=== PATIENT | male | born 1980 | race Caucasian/White ===

== ENCOUNTER 2022-08-08 12:47 | Inpatient (IN) | payer OTHER ==
[~2022-08-08] VITALS: Ht 172.7 cm; Wt 80.7 kg
--- NOTE | 2022-08-08 12:52 | NUR ---
[facility] unit 305 From [facility] "Abdominal Pain/nausea/vomiting." Attached to monitor vitals are withi normal limit. Awaiting MD orders.
[2022-08-08] MEDS ORDERED: ONDANSETRON HCL/PF 4 MG/2 ML VIAL ONE ×2 (12:58→15:31)
[2022-08-08] MEDS ORDERED: ONDANSETRON HCL/PF 4 MG/2 ML VIAL IVP ONE (13:00)
--- NOTE | 2022-08-08 13:29 | NUR ---
PT TAKEN TO CT VIA CT
[2022-08-08 13:44] LABS: BASOPHILS % (AUTO) 0.3 % (0.0-2.0); EOSINOPHILS % (AUTO) 0.8 % (0.0-6.0); HEMATOCRIT 43 % (39-51); HEMOGLOBIN 14.3 g/dL (13.5-17.5); LYMPHOCYTES % (AUTO) 17.3 % (20.0-44.0); MEAN CORPUSCULAR HGB CONC 33 g/dl (31.0-36.0); MEAN CORPUSCULAR VOLUME 88 fL (80-96); MONOCYTES # (AUTO) 0.8 K/uL (0.1-1.30); MONOCYTES % (AUTO) 7.1 % (2.0-12.0); NEUTROPHILS # (AUTO) 8.5 K/uL (1.8-8.9); NEUTROPHILS % (AUTO) 74.5 % (43.0-81.0); PLATELET COUNT (AUTO) 285 K/uL (150-450); WHITE BLOOD COUNT (AUTO) 11.4 K/uL (4.3-11.0)
--- NOTE | 2022-08-08 14:20 | NUR ---
ULTRASOUND AT BEDSIDE
--- NOTE | 2022-08-08 14:45 | NUR ---
OLEGARIO COLLECTED AND SENT
--- NOTE | 2022-08-08 15:02 | NUR ---
URINE COLLECTED AND SENT
[2022-08-08 15:09] LABS: BILIRUBIN,URINE NEGATIVE (NEGATIVE); COLOR,URINE YELLOW (YELLOW); LEUKOCYTE ESTERASE ,URINE NEGATIVE (NEGATIVE); NITRITE, URINE NEGATIVE (NEGATIVE); PROTEIN,URINE NEGATIVE (NEGATIVE); UGLUCOSE 1+ mg/dL (NEGATIVE); UROBILINOGEN,URINE 0.2 EU/dL (0.2)
[2022-08-08 15:09] LABS: ALBUMIN 3.7 g/dL (3.4-5.0); BILIRUBIN,DIRECT 0.1 mg/dL (0.0-0.2); BILIRUBIN,TOTAL 0.5 mg/dL (0.2-1.0); CALCIUM, SERUM 9.5 mg/dL (8.5-10.1); CREATININE 0.6 mg/dL (0.6-1.3); TOTAL PROTEIN, SERUM 7.7 g/dL (6.4-8.2)
[2022-08-08] MEDS ORDERED: AMIN30LI2 PO (15:23)
[2022-08-08] MEDS ORDERED: BISA10SU11 RC (15:23)
[2022-08-08] MEDS ORDERED: POLY17PO4 PO (15:23)
[2022-08-08] MEDS ORDERED: INSU100V27 SQ (15:23)
[2022-08-08] MEDS ORDERED: MAGN400O6 PO (15:23)
[2022-08-08] MEDS ORDERED: METF-440 PO (15:23)
[2022-08-08] MEDS ORDERED: OXYC5TAB3 PO (15:23)
[2022-08-08] MEDS ORDERED: ACET-2605 PO (15:23)
[2022-08-08] MEDS ORDERED: ACET-868 PO ×2 (15:23)
[2022-08-08] MEDS ORDERED: GABA-532 PO (15:23)
[2022-08-08] MEDS ORDERED: ONDA4TAB5 PO (15:23)
[2022-08-08] MEDS ORDERED: MULT-447 PO (15:23)
[2022-08-08] MEDS ORDERED: OXYC10TA49 PO (15:23)
[2022-08-08] MEDS ORDERED: NA P133E RC (15:23)
[2022-08-08] MEDS ORDERED: GLIM4TAB37 PO (15:23)
[2022-08-08] MEDS ORDERED: INSU100V7 SQ (15:23)
[2022-08-08] MEDS ORDERED: CLON0.1T PO (15:23)
[2022-08-08] MEDS ORDERED: ASCO-352 PO (15:23)
[2022-08-08] MEDS ORDERED: MORPHINE SULFATE INJ 2 MG/ML DISP.SYRIN IV ONE (15:30)
[2022-08-08] MEDS ORDERED: PIPERACILLIN /TAZOBACTAM 3.375 G in IV D5W 50 ML IV ONE (15:30)
[2022-08-08] MEDS ORDERED: ONDANSETRON HCL/PF - ER 4 MG/2 ML VIAL IV ONE (15:30)
[2022-08-08] MEDS ORDERED: MORPHINE SULFATE INJ 2 MG/ML DISP.SYRIN ONE (15:31)
--- NOTE | 2022-08-08 16:21 | NUR ---
BED 325-2
--- NOTE | 2022-08-08 16:27 | NUR ---
report given to deniz for darrin
--- NOTE | 2022-08-08 18:23 | NUR ---
PT TAKEN TO MED SURG FLOOR IN STABLE CONDITION
--- NOTE | 2022-08-08 18:37 | NUR ---
Received pt from ER at 1824. VS taken: BP-115/79; SP02-95; HR-65; Temp-98; RR-20. Will be endorsed to pm shift nurse for darrin
[2022-08-08] MEDS ORDERED: ONDANSETRON HCL/PF 4 MG/2 ML VIAL IVP PRN (19:00)
[2022-08-08] MEDS ORDERED: DEXTROSE 50%-WATER 50 ML DISP.SYRIN IV PRN (19:00)
[2022-08-08] MEDS ORDERED: ACETAMINOPHEN 325 MG TABLET PO PRN (19:00)
[2022-08-08] MEDS ORDERED: Z GUARD REMEDY 4 OZ OINT TP PRN (19:00)
--- NOTE | 2022-08-08 19:30 | NUR ---
MS RN NOTES RECEIVED PATIENT AWAKE IN BED. PATIENT IS A/O TIMES 4. NO PAIN NOTED. NO SOB NOTED. NO DISTRESS NOTED. ON ROM AIR AND TOLERATING WELL. NO DISTRESS NOTED. NOTED WITH LEFT ABOVE THE KNEE AMPUTATION. RIGHT LATERAL FOOT NOTED WITH SMALL WOUND. COVERED WITH DRY DRESSING. ALL NEEDS ATTENDED. PATIENT ABLE TO MAKE NEEDS KNOWN. IV ACCESS NOTED ON THE LEFT FOREARM G # 22 INTACT AND RUNNING NS AT 75 ML/HR. ALL THE BELONGINGS ACCOUNTED AND SIGNED FOR. ALL SAFETY MEASURES IN PLACE. BED LOCKED IN THE LOWEST POSITION. CALL LIGHT AND TABLE IN EASY REACH. SIDE RAILS UP TIMES 2. WILL CONTINUE TO MONITOR CLOSELY.
[2022-08-08 20:00] VITALS: BP 113/77
[2022-08-08] MEDS: PANTOPRAZOLE 40 MG VIAL IV SCH (20:07)
[2022-08-08] MEDS: ENOXAPARIN SODIUM 40 MG/0.4 ML DISP.SYRIN SQ SCH (20:09)
[2022-08-08] MEDS: MORPHINE SULFATE INJ 2 MG/ML DISP.SYRIN IV PRN (20:48)
--- NOTE | 2022-08-08 20:58 | NUR ---
RN NOTES PRN MORPHINE GIVEN AT 2057 FOR ABDOMINAL PAIN 10/24 PER PATIENT REQUEST. WILL ASSESS IN 30 MIN.
[2022-08-08] MEDS: IV NS 0.9% 1,000 ML IV PRN (21:09)
[2022-08-08] MEDS: PIPERACILLIN /TAZOBACTAM 3.375 G in IV D5W 50 ML IV SCH (23:21)
[2022-08-08] MEDS: BLOOD SUGAR DIAGNOSTIC 1 EACH STRIP IN SCH (23:52)
--- NOTE | 2022-08-09 | NUR ---
RN NOTES BLOOD SUGAR CHECK NOTED 253. HELD INSULIN FOR BEING NPO.
[2022-08-09] MEDS: PIPERACILLIN /TAZOBACTAM 3.375 G in IV D5W 50 ML IV SCH ×3 (05:00→17:15)
--- NOTE | 2022-08-09 05:28 | NUR ---
RN NOTES BLOOD SUGAR CHECKED AT 0528. RESULT NOTED 185. NO INSULIN GIVEN . PATIENT NPO.
[2022-08-09] MEDS: BLOOD SUGAR DIAGNOSTIC 1 EACH STRIP IN SCH ×3 (05:42→17:30)
[2022-08-09 06:14] LABS: BASOPHILS % (AUTO) 0.5 % (0.0-2.0); EOSINOPHILS % (AUTO) 1.7 % (0.0-6.0); HEMATOCRIT 40 % (39-51); HEMOGLOBIN 13.6 g/dL (13.5-17.5); LYMPHOCYTES # (AUTO) 2.5 K/uL (0.8-4.8); MEAN CORPUSCULAR HGB CONC 34 g/dl (31.0-36.0); MEAN CORPUSCULAR VOLUME 88 fL (80-96); MONOCYTES # (AUTO) 0.8 K/uL (0.1-1.30); MONOCYTES % (AUTO) 8.6 % (2.0-12.0); NEUTROPHILS # (AUTO) 5.4 K/uL (1.8-8.9); NEUTROPHILS % (AUTO) 61.2 % (43.0-81.0); PLATELET COUNT (AUTO) 260 K/uL (150-450); RED BLOOD CELL COUNT(AUTO) 4.56 MIL/uL (4.5-6.0); WHITE BLOOD COUNT (AUTO) 8.8 K/uL (4.3-11.0)
--- NOTE | 2022-08-09 06:46 | NUR ---
MS RN CLOSING NOTES PATIENT AWAKE IN BED. PATIENT IS A/O TIMES 4. NO PAIN NOTED. NO SOB NOTED. NO DISTRESS NOTED. ON ROM AIR AND TOLERATING WELL. NO DISTRESS NOTED. NOTED WITH LEFT ABOVE THE KNEE AMPUTATION. RIGHT LATERAL FOOT NOTED WITH SMALL WOUND. COVERED WITH DRY DRESSING. ALL NEEDS ATTENDED. PATIENT ABLE TO MAKE NEEDS KNOWN. IV ACCESS NOTED ON THE LEFT FOREARM G # 22 INTACT AND RUNNING NS AT 75 ML/HR. ALL DUE MEDS GIVEN ORDERED. DRESSING CHANGE ON THE LEFT FOOT DONE. PATIENT NPO FOR HIDA SCAN. ALL SAFETY MEASURES IN PLACE. BED LOCKED IN THE LOWEST POSITION. CALL LIGHT AND TABLE IN EASY REACH. SIDE RAILS UP TIMES 2.WILL ENDORSE FOR ALONSO.
[2022-08-09 06:51] LABS: ALBUMIN 3.2 g/dL (3.4-5.0); BILIRUBIN,DIRECT 0.1 mg/dL (0.0-0.2); BILIRUBIN,TOTAL 0.6 mg/dL (0.2-1.0); CALCIUM, SERUM 8.7 mg/dL (8.5-10.1); CREATININE 0.7 mg/dL (0.6-1.3); MAGNESIUM 2.1 mg/dL (1.8-2.4); PHOSPHORUS 4.2 mg/dL (2.5-4.9); POTASSIUM 3.6 mmol/L (3.5-5.1); TOTAL PROTEIN, SERUM 6.8 g/dL (6.4-8.2)
[2022-08-09 08:00] VITALS: BP 113/77
--- NOTE | 2022-08-09 08:07 | NUR ---
MS RN OPENING NOTES RECEIVED PATIENT IN BED, CALM, AOX4,ABLE TO FOLLOW COMMANDS, BREATHING ON ROOM AIR WITHOUT ANY DIFFICULTY, DENIED PAIN, DISCOMFORT, NAUSEA/VOMITING AT THE MOMENT. FOR HIDA SCAN TODAY, CONSENTS SIGNED. PATIENT REMAINS ON NPO. PATIENT HAS LEFT AKA AMPUTATION. IV ACCESS ON LEFT HAND G#22 WITH NS RUNNING AT 75/ML, PATENT, FLUSHING WELL. SAFETY MEASURES IN PLACE: BED IN LOWEST AND LOCKED POSITION, SIDE RAILS UP X2, CALL LIGHT AND TRAY TABLE WITHIN EASY REACH. WILL CONTINUE TO MONITOR.
[2022-08-09] MEDS: MULTIVIT W/MINERALS 1 TAB TABLET PO SCH ×2 (09:00→09:46)
[2022-08-09] MEDS: ASCORBIC ACID 500 MG TABLET PO SCH ×2 (09:00→09:46)
[2022-08-09] MEDS: PROSOURCE / PROSTAT (PYXIS) 30 ML UDC GT SCH ×2 (09:00→09:45)
[2022-08-09] MEDS: GABAPENTIN 300 MG CAPSULE PO SCH ×4 (09:00→17:16)
[2022-08-09] MEDS: PANTOPRAZOLE 40 MG VIAL IV SCH (09:46)
--- NOTE | 2022-08-09 10:18 | NUR ---
RN NOTES PATIENT HAS BEEN TAKEN VIA WHEELCHAIR TO NUCLEAR MEDICINE DEPARTMENT BY STANLEY FOR HIDA SCAN.
--- NOTE | 2022-08-09 10:42 | NUR ---
WOUND CARE CONSULT: PT OFF UNIT AT THIS TIME. PER NURSING STAFF, PT HAS WOUND TO RT LATERAL FOOT, PRESENT ON ADMISSION. DR KEVIN CALLED FOR DPM CONSULT. IN AGREEMENT WITH PLAN OF CARE.
[2022-08-09] MEDS: INSULIN REGULAR, HUMAN 100 UNIT/ML 3 ML VIAL SQ PRN ×2 (12:23→18:00)
--- NOTE | 2022-08-09 12:23 | NUR ---
RN NOTES PATIENT REFUSED INSULIN FOR NOW SINCE HE'S BEEN NPO FOR A LONG TIME, BLOOD GLUCOSE = 144, SWITCHED TO CLEAR LIQUIDS DIET AND CALLED DIETARY TO SEND TRAY. WILL CHECK AGAIN LATER.
[2022-08-09 16:00] VITALS: BP 104/57
[2022-08-09] MEDS: IV NS 0.9% 1,000 ML IV PRN (17:15)
[2022-08-09] MEDS: ENOXAPARIN SODIUM 40 MG/0.4 ML DISP.SYRIN SQ SCH (18:00)
--- NOTE | 2022-08-09 18:38 | NUR ---
RN NOTES SECURED CONSENTS OF LAPAROSCOPIC CHOLECYSTECTOMY POSSIBLE OPEN FOR TOMORROW 08/10 BUT WAS MOVED TO FRIDAY, 08/11 PER SUPERVISORY THRU CHARGE NURSE. PATIENT HAS BEEN INFORMED, DIET SWITCHED BACK TO CLEAR LIQUIDS.
--- NOTE | 2022-08-09 19:23 | NUR ---
MS RN OPENING NOTE RECEIVED PT AWAKE IN BED. A/O X4, MARSHALLESE SPEAKING, AND ABLE TO MAKE NEEDS KNOWN. PT STABLE ON ROOM AIR. NO SOB OR S/S OF RESPIRATORY DISTRESS. BREATHING EVEN AND UNLABORED. IV ACCESS L HAND 22G, INTACT AND PATENT, RUNNING NS @ 75 ML/HR. NO COMPLAINTS OF PAIN OR DISCOMFORT AT THIS TIME. SAFETY PRECAUTIONS IN PLACE. BED IN LOWEST LOCKED POSITION, HOB ELEVATED, SIDE RAILS UP X2, AND CALL LIGHT AND TABLE WITHIN REACH. ALL NEEDS MET AT THIS TIME.
--- NOTE | 2022-08-09 19:41 | NUR ---
MS RN CLOSING NOTE PT AWAKE IN BED. A/O X4, LEBANESE SPEAKING, AND ABLE TO MAKE NEEDS KNOWN. PT STABLE ON ROOM AIR. NO SOB OR S/S OF RESPIRATORY DISTRESS. BREATHING EVEN AND UNLABORED. IV ACCESS L HAND 22G, INTACT AND PATENT, RUNNING NS @ 75 ML/HR. NO COMPLAINTS OF PAIN OR DISCOMFORT AT THIS TIME. ALL NEEDS MET, ALL DUE MEDS GIVEN. SAFETY PRECAUTIONS MAINTAINED: BED IN LOWEST LOCKED POSITION, HOB ELEVATED, SIDE RAILS UP X2, AND CALL LIGHT AND TABLE WITHIN REACH. ENDORSED TO CRIME SCENE EVIDENCE TECHNICIAN NURSE.
[2022-08-09 20:00] VITALS: BP 111/74
[2022-08-10] MEDS: PIPERACILLIN /TAZOBACTAM 3.375 G in IV D5W 50 ML IV SCH ×3 (00:04→11:31)
[2022-08-10] MEDS: BLOOD SUGAR DIAGNOSTIC 1 EACH STRIP IN SCH ×4 (00:10→17:24)
[2022-08-10] MEDS: INSULIN REGULAR, HUMAN 100 UNIT/ML 3 ML VIAL SQ PRN ×4 (00:11→17:29)
--- NOTE | 2022-08-10 05:28 | NUR ---
RN NOTE BS 140. PT REFUSED 2 UNITS PER SLIDING SCALE HE IS STILL SLEEPING AND DOES NOT PLAN ON EATING ANYTIME SOON. EDUCATED PT ON THE IMPORTANCE OF KEEPING BLOOD SUGAR LOW AND MED COMPLIANCE BUT PATIENT STILL REFUSED. CHARGE NURSE ANSON SHERMAN.
--- NOTE | 2022-08-10 06:32 | NUR ---
MS RN CLOSING NOTE PT RESTING IN BED, VERBALLY RESPONSIVE. A/O X4, ICELANDIC SPEAKING, AND ABLE TO MAKE NEEDS KNOWN. PT STABLE ON ROOM AIR. NO SOB OR S/S OF RESPIRATORY DISTRESS. BREATHING EVEN AND UNLABORED. IV ACCESS L HAND 22G, INTACT AND PATENT, RUNNING NS @ 75 ML/HR. NO COMPLAINTS OF PAIN OR DISCOMFORT AT THIS TIME. ALL DUE MEDS GIVEN ORDERED. SAFETY PRECAUTIONS IN PLACE AT ALL TIMES. BED IN LOWEST LOCKED POSITION, HOB ELEVATED, SIDE RAILS UP X2, AND CALL LIGHT AND TABLE WITHIN REACH. ALL NEEDS MET AT THIS TIME AND WILL ENDORSE TO ONCOMING NURSE FOR ALONSO.
--- NOTE | 2022-08-10 07:35 | NUR ---
MS RN OPENING NOTES RECEIVED PATIENT AWAKE IN BED WATCHING VIDEOS ON HIS PHONE, AOX4, ABLE TO FOLLOW COMMANDS, ON ROOM AIR WITHOUT ANY DIFFICULTY, NO COMPLAINTS OF DISCOMFORT, NAUSEA/VOMITING AT THE MOMENT. PATIENT HAS LEFT AKA AMPUTATION. IV ACCESS ON LEFT HAND G#22 WITH NS RUNNING AT 75/ML, PATENT, FLUSHING WELL. SAFETY MEASURES IN PLACE: BED IN LOWEST AND LOCKED POSITION, SIDE RAILS UP X2, CALL LIGHT AND TRAY TABLE WITHIN EASY REACH. WILL CONTINUE PLAN OF CARE.
[2022-08-10 08:00] VITALS: BP 106/71
[2022-08-10] MEDS: MULTIVIT W/MINERALS 1 TAB TABLET PO SCH (09:32)
[2022-08-10] MEDS: ASCORBIC ACID 500 MG TABLET PO SCH (09:32)
[2022-08-10] MEDS: GABAPENTIN 300 MG CAPSULE PO SCH ×3 (09:32→17:19)
[2022-08-10] MEDS: PROSOURCE / PROSTAT (PYXIS) 30 ML UDC GT SCH (09:32)
[2022-08-10] MEDS: IV NS 0.9% 1,000 ML IV PRN (10:19)
--- NOTE | 2022-08-10 15:08 | NUR ---
RN NOTES DR BRADY AT BEDSIDE WITH THE PATIENT TO DISCUSS, LAPAROSCOPIC CHOLECYSTECTOMY POSSIBLE OPEN TOMORROW 08/11
[2022-08-10 16:00] VITALS: BP 120/70
[2022-08-10] MEDS: AMMONIUM LACTATE 227 GM BOTTLE TP SCH (17:32)
[2022-08-10] MEDS: ENOXAPARIN SODIUM 40 MG/0.4 ML DISP.SYRIN SQ SCH (18:05)
--- NOTE | 2022-08-10 18:30 | NUR ---
MS RN CLOSING NOTE PT AWAKE IN BED WATCHING TV, A/O X4, ABLE TO MAKE NEEDS KNOWN. PT STABLE ON ROOM AIR, NO SOB OR S/S OF RESPIRATORY DISTRESS. BREATHING EVEN AND UNLABORED. IV ACCESS L HAND 22G, INTACT AND PATENT, RUNNING NS @ 75 ML/HR. NO COMPLAINTS OF PAIN OR DISCOMFORT AT THIS TIME. PATIENT IS AWARE OF HIS SURGERY TOMORROW AT 1000 AND HE WILL BE ON NPO AFTER MIDNIGHT. ALL NEEDS MET, ALL DUE MEDS GIVEN. SAFETY PRECAUTIONS MAINTAINED: BED IN LOWEST LOCKED POSITION, HOB ELEVATED, SIDE RAILS UP X2, AND CALL LIGHT AND TABLE WITHIN REACH. WILL ENDORSE TO PROFESSOR OF THEOLOGY NURSE.
[2022-08-10 20:00] VITALS: BP 116/72
[2022-08-10] MEDS: MORPHINE SULFATE INJ 2 MG/ML DISP.SYRIN IV PRN (20:09)
--- NOTE | 2022-08-10 20:29 | NUR ---
MS RN OPENING NOTES; RECEIVED PATIENT AWAKE IN BED, BED IN LOW POSITION CALL LIGHTS WITHIN REACH, NO COMPLAIN OF PAIN AND DISCOMFORT AT THIS TIME, ON ROOM AIR SATURATING WELL, PATIENT IS A/O X4 AMBULATORY WITH ASSISTANCE, ON IV LINE AT LEFT HAND #22 WITH ONGOING [id number]/HR INFUSING WELL, PATIENT KEPT CLEAN AND DRY ALL NEEDS MET WILL CONTINUE TO MONITOR.
[2022-08-10] MEDS: PIPERACILLIN /TAZOBACTAM 3.375 G in IV D5W 100 ML IV SCH (20:51)
--- NOTE | 2022-08-11 00:02 | NUR ---
RN NOTES: BLOOD SUGAR-182/ NO INSULIN GIVEN PATIENT ON NPO WITH SCHEDULE PROCEDURE TOMORROW I
[2022-08-11] MEDS: PIPERACILLIN /TAZOBACTAM 3.375 G in IV D5W 100 ML IV SCH ×3 (05:37→20:35)
[2022-08-11] MEDS: BLOOD SUGAR DIAGNOSTIC 1 EACH STRIP IN SCH ×4 (06:00→17:12)
--- NOTE | 2022-08-11 06:24 | NUR ---
RN NOTES: BLOOD SUGAR-152/ NO INSULIN GIVEN, PATIENT IS NPO PRIOR TO PROCEDURE IN AM
--- NOTE | 2022-08-11 06:25 | NUR ---
MS MONIQUE CLOSING NOTES; PATIENT SLEEP IN BED COMFORTABLY, AROUSABLE TO VERBAL STIMULI, BED IN LOW POSITON CALL LIGHTS WITHIN REACH, NO COMPLAIN OF PAIN AND DISCOMFORT AT THIS TIME, ON ROOM AIR SATURATING WELL, PATIENT IS A/O X4 ABLE TO MAKE NEEDS KNOWN, AMBULATORY USING WALKER AND SUPERVISION, Addendum: 08/11/22 at 0628 by CAESAR OCASIO RN PATIENT IS NPO FOR SCHEDULE LAPAROSCOPIC CHOLECYSTECTOMY AT 1000, IV LINE AT LEFT HAND#22 WITH ONGOING 0.9NSS@75ML/HR INFUSING WELL, PATIENT KEPT CLEAN AND DRY ALL NEEDS MET ENDORSE TO INCOMING SHIFT.
[2022-08-11 06:29] LABS: BASOPHILS % (AUTO) 0.3 % (0.0-2.0); EOSINOPHILS % (AUTO) 2.1 % (0.0-6.0); HEMATOCRIT 41 % (39-51); HEMOGLOBIN 13.9 g/dL (13.5-17.5); LYMPHOCYTES # (AUTO) 2.8 K/uL (0.8-4.8); LYMPHOCYTES % (AUTO) 37.2 % (20.0-44.0); MEAN CORPUSCULAR HGB CONC 34 g/dl (31.0-36.0); MEAN CORPUSCULAR VOLUME 87 fL (80-96); MONOCYTES # (AUTO) 0.5 K/uL (0.1-1.30); MONOCYTES % (AUTO) 6.2 % (2.0-12.0); NEUTROPHILS # (AUTO) 4.1 K/uL (1.8-8.9); NEUTROPHILS % (AUTO) 54.2 % (43.0-81.0); PLATELET COUNT (AUTO) 259 K/uL (150-450); RED BLOOD CELL COUNT(AUTO) 4.73 MIL/uL (4.5-6.0); WHITE BLOOD COUNT (AUTO) 7.6 K/uL (4.3-11.0)
[2022-08-11 06:46] LABS: ALBUMIN 3.4 g/dL (3.4-5.0); BILIRUBIN,DIRECT 0.1 mg/dL (0.0-0.2); BILIRUBIN,TOTAL 0.6 mg/dL (0.2-1.0); TOTAL PROTEIN, SERUM 7.2 g/dL (6.4-8.2)
[2022-08-11 06:54] LABS: CALCIUM, SERUM 8.8 mg/dL (8.5-10.1); CREATININE 0.6 mg/dL (0.6-1.3); MAGNESIUM 2.2 mg/dL (1.8-2.4); PHOSPHORUS 4.3 mg/dL (2.5-4.9); POTASSIUM 3.7 mmol/L (3.5-5.1)
[2022-08-11 07:30] VITALS: BP 102/63
--- NOTE | 2022-08-11 07:43 | NUR ---
MS RN OPENING NOTE Patient in bed, awake. A/O x 4, able to make needs known. On room air, no SOB or s/s of distress noted. IV access on Left hand #22 infusing NS at 75 ml/hr. Patient kept NPO for surgery this AM. Safety precautions in place: bed in low, locked position; siderails up x 2; call light within reach. Will continue to monitor.
[2022-08-11] MEDS: PROSOURCE / PROSTAT (PYXIS) 30 ML UDC GT SCH (09:00)
[2022-08-11] MEDS: PANTOPRAZOLE 40 MG/PACK PACK PO SCH (09:00)
[2022-08-11] MEDS: ASCORBIC ACID 500 MG TABLET PO SCH (09:00)
[2022-08-11] MEDS: GABAPENTIN 300 MG CAPSULE PO SCH ×3 (09:00→17:02)
[2022-08-11] MEDS: MULTIVIT W/MINERALS 1 TAB TABLET PO SCH (09:00)
[2022-08-11] MEDS: AMMONIUM LACTATE 227 GM BOTTLE TP SCH ×2 (09:22→17:03)
[2022-08-11] MEDS ORDERED: ANESTHESIA TRAY IN PYXIS 1 EA TRAY MC ONE (10:01)
[2022-08-11] MEDS ORDERED: FAMOTIDINE/PF INJ 20 MG/2 ML VIAL IV ONE (10:02)
[2022-08-11] MEDS ORDERED: KETAMINE HCL (500MG/10ML) 50 MG/ML VIAL ONE (10:02)
[2022-08-11] MEDS ORDERED: ROCURONIUM BROMIDE 50 MG/5 ML ONE (10:02)
[2022-08-11] MEDS ORDERED: ROPIVACAINE HCL 0.5% 5 MG/ML 30ML VIAL ONE (10:02)
[2022-08-11] MEDS ORDERED: FENTANYL PF 100MCG/2ML AMPUL ONE (10:02)
[2022-08-11] MEDS ORDERED: TRIAMCINOLONE ACETONIDE SUSP 40 MG/ML 1 ML ONE (10:03)
[2022-08-11] MEDS ORDERED: LABETALOL HCL IV 100MG VIAL ONE (10:03)
--- NOTE | 2022-08-11 10:15 | NUR ---
RN NOTE Patient brought to OR for surgery.
[2022-08-11] MEDS ORDERED: PHYTONADIONE INJ 10 MG/1 ML AMPUL ONE (11:01)
[2022-08-11] MEDS ORDERED: Magnesium 1 GM/2 ML VIAL ONE (11:30)
[2022-08-11] MEDS ORDERED: CELLULOSE,OXIDIZED 1 EA PACK MC ONE (11:39)
[2022-08-11] MEDS ORDERED: BACITRACIN ZINC OINT (15 GM) 15 GM TUBE TP ONE (11:54)
[2022-08-11] MEDS ORDERED: hydrALAZINE HCL IV 20 MG VIAL ONE (13:23)
--- NOTE | 2022-08-11 13:30 | NUR ---
RN NOTE Received patient from OR, s/p Laparoscopic Cholecystectomy by Dr. Thomas. Surgical dressings on abdomen x 4 c/d/i. TOMMY drain noted on right abdomen incision draining to a sanguinous colored drainage with clot. VS as follows: BP 145/92, HR 64, RR 18, Temp 98F, SPO2 96% on room air. Will continue to monitor.
--- NOTE | 2022-08-11 13:45 | NUR ---
RN NOTE Patient remains stable with VS as follows: BP 145/88, HR 75, RR 18, Temp 98.2, SPO2 96% on room air. Surgical dressings on abdomen c/d/i. Patient denies any pain or discomfort at this time. Will continue to monitor.
[2022-08-11] MEDS ORDERED: HYDROMORPHONE INJ 2 MG/ML DISP.SYRIN IV PRN (14:00)
--- NOTE | 2022-08-11 14:00 | NUR ---
RN NOTE Patient remains stable with VS as follows: BP 150/94 HR 75, RR 18, Temp 98.1, SPO2 97% on room air. Surgical dressings on abdomen c/d/i. Patient denies any pain or discomfort at this time. Will continue to monitor.
[2022-08-11] MEDS: ACETAMINOPHEN 325 MG TABLET PO SCH ×2 (14:05→22:58)
--- NOTE | 2022-08-11 14:15 | NUR ---
RN NOTE Patient remains stable with VS as follows: BP 152/97 HR 90 RR 18, Temp 97.8, SPO2 97% on room air. Surgical dressings on abdomen c/d/i. Patient denies any pain or discomfort at this time. Will continue to monitor.
--- NOTE | 2022-08-11 14:30 | NUR ---
RN NOTE Patient remains stable with VS as follows: BP 150/88, HR 72, RR 18, Temp 97.9, SPO2 97% on room air. Surgical dressings on abdomen c/d/i. Patient denies any pain or discomfort at this time. Will continue to monitor.
[2022-08-11 16:00] VITALS: BP 142/83
[2022-08-11] MEDS: MORPHINE SULFATE INJ 2 MG/ML DISP.SYRIN IV PRN (17:17)
[2022-08-11] MEDS: INSULIN REGULAR, HUMAN 100 UNIT/ML 3 ML VIAL SQ PRN (17:33)
[2022-08-11] MEDS: IV LR 1000 ML 1,000 ML IV PRN (19:01)
--- NOTE | 2022-08-11 19:30 | NUR ---
MS RN OPENING NOTE RECEIVED PATIENT FROM AM NURSE; PATIENT IN BED, A / O X 4, ABLE TO MAKE NEEDS KNOWN; STABLE ON ROOM AIR, BREATHING EVENLY AND NO S/S OF DISTRESS NOTED; PATIENT WAS S/P LAP HOLDEN WITH SURGICAL DRESSING C/D/I; WITH IV ACCESS AT LEFT HAND G#20 RUNNING WITH LR AT100 ML/HR; ENCOURAGED VERBALIZATION OF NEEDS; SAFETY MEASURES IMPLEMENTED, BED LOCKED IN LOWEST POSITION, SIDE RAILS UP X 2, CALL LIGHT AND TABLE WITHIN REACH; WILL CONTINUE TO MONITOR
[2022-08-11] MEDS: ENOXAPARIN SODIUM 40 MG/0.4 ML DISP.SYRIN SQ SCH (19:48)
[2022-08-11 20:00] VITALS: BP 115/78
[2022-08-11] MEDS: CELECOXIB 100 MG CAPSULE PO SCH (20:27)
--- NOTE | 2022-08-11 21:15 | NUR ---
MS RN NOTE PATIENT'S NEEDS ATTENDED; DUE MEDICATIONS GIVEN; SAFETY MEASURES IMPLEMENTED; ENDORSED TO KIRAN MONIQUE FOR CONTINUITY OF CARE
--- NOTE | 2022-08-11 21:15 | NUR ---
airplane pilot supervisor of Care Note Transfer of care received from ENEIDA Palomares. Received patient in bed: awake, alert and oriented x 4. On room air; tolerating well. Not in any form of respiratory or cardiac distress noted at this time. No c/o pain or discomfort. With IV access on left hand 22g; patent and intact infusing with LR 1L running @ 100 ml/hr; flushes well. Able to make needs known. Safety precautions implemented: call light and table within reach, side rails up x 2, bed in lowest locked position. Will continue to monitor throughout shift.
[2022-08-12] MEDS: BLOOD SUGAR DIAGNOSTIC 1 EACH STRIP IN SCH ×3 (00:07→12:13)
[2022-08-12] MEDS: MORPHINE SULFATE INJ 2 MG/ML DISP.SYRIN IV PRN ×3 (00:08→16:28)
--- NOTE | 2022-08-12 00:08 | NUR ---
RN Note Patient complained of abdominal pain 9/10 pain scale. PRN Morphine inj 2 mg given IV push as ordered. Kept comfortable in bed. Will continue to monitor and reassess patient.
[2022-08-12] MEDS: INSULIN REGULAR, HUMAN 100 UNIT/ML 3 ML VIAL SQ PRN ×3 (00:19→12:13)
--- NOTE | 2022-08-12 00:19 | NUR ---
RN Note Blood sugar checked with result of 242 mg/dl. 4 units of regular insulin given as indicated per sliding scale. Will continue to monitor for s/sx of hyperglycemia/hypoglycemia.
[2022-08-12] MEDS: PIPERACILLIN /TAZOBACTAM 3.375 G in IV D5W 100 ML IV SCH ×2 (05:16→12:10)
[2022-08-12] MEDS: IV LR 1000 ML 1,000 ML IV PRN (05:20)
[2022-08-12] MEDS: ACETAMINOPHEN 325 MG TABLET PO SCH ×2 (06:00→13:36)
[2022-08-12 06:23] LABS: BASOPHILS % (AUTO) 0.2 % (0.0-2.0); EOSINOPHILS % (AUTO) 0.7 % (0.0-6.0); HEMATOCRIT 40 % (39-51); HEMOGLOBIN 13.1 g/dL (13.5-17.5); LYMPHOCYTES # (AUTO) 2.9 K/uL (0.8-4.8); LYMPHOCYTES % (AUTO) 25.7 % (20.0-44.0); MEAN CORPUSCULAR HGB CONC 33 g/dl (31.0-36.0); MEAN CORPUSCULAR VOLUME 91 fL (80-96); MONOCYTES # (AUTO) 0.9 K/uL (0.1-1.30); MONOCYTES % (AUTO) 8.3 % (2.0-12.0); NEUTROPHILS # (AUTO) 7.4 K/uL (1.8-8.9); NEUTROPHILS % (AUTO) 65.1 % (43.0-81.0); PLATELET COUNT (AUTO) 256 K/uL (150-450); RED BLOOD CELL COUNT(AUTO) 4.41 MIL/uL (4.5-6.0); WHITE BLOOD COUNT (AUTO) 11.3 K/uL (4.3-11.0)
[2022-08-12 06:33] LABS: CALCIUM, SERUM 8.7 mg/dL (8.5-10.1); CREATININE 0.6 mg/dL (0.6-1.3); MAGNESIUM 2.4 mg/dL (1.8-2.4); PHOSPHORUS 3.3 mg/dL (2.5-4.9); POTASSIUM 3.6 mmol/L (3.5-5.1)
--- NOTE | 2022-08-12 06:36 | NUR ---
RN Note Patient complained of abdominal pain 10/10 pain scale. PRN Morphine inj 2 mg given IV push as ordered. Kept comfortable in bed. Will continue to monitor and reassess patient.
--- NOTE | 2022-08-12 06:55 | NUR ---
RN Closing Note Patient in bed: awake, a/o x 4. Stable on room air. In no acute distress. No c/o pain or discomfort. With IV access on left hand 22g; patent and intact infusing with LR 1L regulated @ 100 ml/hr; flushes well. All due meds given as ordered. All needs attended. Safety precautions in place: call light and table within reach, side rails up x 2, bed in lowest locked position. Endorsed to morning shift for continuity of care.
[2022-08-12 07:00] VITALS: BP_SYST 111; BP_SYST 135; BP_DIAS 61; BP_DIAS 82
[2022-08-12] MEDS ORDERED: PANTOPRAZOLE 40 MG TABLET.DR PO SCH (07:30)
--- NOTE | 2022-08-12 07:30 | NUR ---
RN MS NOTES PT IN BED, AWAKE, ALERT AND ORIENTED, NO COMPLAINT OF PAIN, NOT IN DISTRESS, CALL LIGHT WITHIN REACH.
[2022-08-12] MEDS: CELECOXIB 100 MG CAPSULE PO SCH (08:20)
[2022-08-12] MEDS: MULTIVIT W/MINERALS 1 TAB TABLET PO SCH (08:20)
[2022-08-12] MEDS: GABAPENTIN 300 MG CAPSULE PO SCH ×3 (08:20→16:24)
[2022-08-12] MEDS: ASCORBIC ACID 500 MG TABLET PO SCH (08:20)
[2022-08-12] MEDS: PROSOURCE / PROSTAT (PYXIS) 30 ML UDC GT SCH (08:21)
[2022-08-12] MEDS: PANTOPRAZOLE 40 MG/PACK PACK PO SCH (08:25)
--- NOTE | 2022-08-12 12:17 | NUR ---
RN MS NOTES MORPHINE 2 MG IV PUSH ADMINISTERED ORDERED, WILL REASSESS NEEDED.
[2022-08-12] MEDS: AMMONIUM LACTATE 227 GM BOTTLE TP SCH ×2 (12:24→16:34)
[2022-08-12] MEDS ORDERED: CIPR500T5 PO (12:49)
[2022-08-12 16:00] VITALS: BP 116/69
[2022-08-12] MEDS ORDERED: POLYETHYLENE GLYCOL 3350 17 GM POWD.PACK PO ONE (16:30)
--- NOTE | 2022-08-12 16:53 | NUR ---
RN MS NOTES PT IN BED, AWAKE, ALERT AND ORIENTED, PAIN MEDICATION GIVEN ORDERED, NO BLEEDING NOTED AT ABDOMINAL LAP SITES, TOMMY DRAIN INTACT, DRAINED 30ML OF SANGUENOUS FLUID, DISCHARGE ORDER GIVEN BY DR. RAMIREZ, DISCHARGE AND MEDICATION INSTRUCTIONS PROVIDED TO PT, VERBALIZED UNDERSTANDING, REPORT GIVEN TO DANY MONIQUE OF [facility], MIRALAX GIVEN FOR BOWEL MANAGEMENT, PER PT, NO BM SINCE BEFORE SURGERY, BELONGINGS ACCOUNTED FOR, PICKED UP BY 2 AMBULANCE PERSONNEL, LEFT IN STABLE CONDITION.
== END 2022-08-12 17:00 | DRG 263 ==
LOC: ER 13:22 → MED 17:42
PROVIDERS: ADMIT Nurse Practitioner Acute Care; ATTEND Nurse Practitioner Acute Care
PROC: 0FT44ZZ Resection of Gallbladder, Percutaneous Endoscopic Approach (ICD-10-PCS; principal; 2022-08-11)
PROC: 0DNU4ZZ Release Omentum, Percutaneous Endoscopic Approach (ICD-10-PCS; 2022-08-11)
DX: K80.13 Calculus of gallbladder with acute and chronic cholecystitis with obstruction (principal); D68.59 Other primary thrombophilia; E11.42 Type 2 diabetes mellitus with diabetic polyneuropathy; L97.519 Non-pressure chronic ulcer of other part of right foot with unspecified severity; E11.621 Type 2 diabetes mellitus with foot ulcer; D72.829 Elevated white blood cell count, unspecified; K66.0 Peritoneal adhesions (postprocedural) (postinfection); I10 Essential (primary) hypertension; M21.171 Varus deformity, not elsewhere classified, right ankle; E78.00 Pure hypercholesterolemia, unspecified; M10.9 Gout, unspecified; Z89.612 Acquired absence of left leg above knee; E66.9 Obesity, unspecified; Z68.27 Body mass index [BMI] 27.0-27.9, adult; Z20.822 Contact with and (suspected) exposure to COVID-19
CPT/HCPCS: 36415; 76705-TC; 78226; 80048-TC; 80061-TC; 80076-TC; 82962-TC; 83690-TC; 83735-TC; 84100-TC; 85025-TC; 85730-TC; 86850-TC; 87081-TC; A4223; A6253; A9537; C9113; C9803; G0378; J0360; J0690; J1100; J1650; J1815; J1885; J2270; J2370; J2405; J2543; J2704; J2765; J2795; J3010; J3430; J3475; J3490; J7030; J7060; J7120